=== PATIENT | female | born 1980 | race Caucasian/White ===

== ENCOUNTER 2018-03-11 10:15 | Emergency (ER) | payer OTHER ==
[~2018-03-11] VITALS: Ht 160 cm; Wt 77.1 kg
[2018-03-11 10:31] VITALS: BP 114/58
[2018-03-11] MEDS ORDERED: BENZ100C PO (10:56)
--- NOTE | 2018-03-11 10:56 | PHYS DOC ---
Past Medical History Past Medical History: No Pertinent History Past Surgical History: , Tubal ligation Alcohol Use: Occasionally Drug Use: None Adult General Chief Complaint Chief Complaint: COUGH HPI HPI Patient is a 38 year old female who presents to the emergency room with complaints of chest congestion, headache, hot and cold chills, fatigue, and dry cough since yesterday. Patient denies any fever, nausea, vomiting, diarrhea, or abdominal pain. In addition she reports a runny nose, left ear pain, sore throat , and frequent throat clearing. She states that at times she has felt short of breath and has been wheezing. She denies any medical history, states that she smokes less than half a pack a day. Patient denies any vision changes, photosensitivity, dizziness, or sinus pressure. She describes her headache as pounding pressure at the base of her skull. Review of Systems Review of Systems Constitutional: Denies fever Eyes: Denies change in visual acuity, redness, or eye pain [] HENT: reports runny nose, L ear pain, nasal congestion, and sore throat [] Respiratory: reports dry cough with shortness of breath [] Cardiovascular: No additional information not addressed in HPI [] GI: Denies abdominal pain, nausea, vomiting, or diarrhea [] Integument: Denies rash or skin lesions [] Neurologic: Denies focal weakness or sensory changes, reports headache All other systems were reviewed and found to be within normal limits, except as documented in this note. Allergies Allergies Allergies Coded Allergies Type Severity Reaction Last Updated Verified Penicillins Allergy Unknown 12/29/14 Yes Physical Exam Physical Exam Constitutional: Well developed, well nourished, no acute distress, non-toxic appearance. [] HENT: Normocephalic, atraumatic, bilateral external ears normal, oropharynx moist, postnasal drainage present, no oral exudates, nose normal. [] Eyes: PERRLA, conjunctiva normal, no discharge. [] Neck: Normal range of motion, no tenderness, supple, no stridor. [] Cardiovascular:Heart rate regular rhythm, no murmur [] Lungs & Thorax: Bilateral breath sounds clear to auscultation [] Skin: Warm, dry, no erythema, no rash. [] Extremities: No cyanosis, no clubbing, ROM intact, no edema. [] Neurologic: Alert and oriented X 3, normal motor function, normal sensory function, no focal deficits noted. [] Psychologic: Affect normal, judgement normal, mood normal. [] Current Patient Data Vital Signs Vital Signs Date Time Temp Pulse Resp B/P (MAP) Pulse Ox O2 Delivery O2 Flow Rate FiO2 03/11/18 10:31 98.0 88 20 114/58 (76) 97 Room Air 98.0 EKG EKG [] Radiology/Procedures Radiology/Procedures [] Course & Med Decision Making Course & Med Decision Making Pertinent Labs and Imaging studies reviewed. (See chart for details) Upper respiratory infection, treated as such. Tessalon Haroldo prescribed. Patient encouraged to use her Flonase nasal spray 2 sprays each nare once a day. Patient verbalized an understanding of home care, medications, follow-up, and return to ED instructions and was in agreement with the plan of care. [] Dragon Disclaimer Dragon Disclaimer This electronic medical record was generated, in whole or in part, using a voice recognition dictation system. Departure Departure Impression: Primary Impression: Upper respiratory infection with cough and congestion Disposition: 01 HOME, SELF-CARE Condition: STABLE Referrals: NO PCP (PCP) Patient Instructions: Upper Respiratory Infection, Adult, [id number] Additional Instructions: Fill prescription(s) and use as directed. OTC Flonase 2 sprays each nare daily. Cool mist humidifier in room at bedtime. Tylenol or ibuprofen prn pain/fever. Increase clear fluids. Avoid triggers such as smoke, fragrance, dust, and pollen. Follow-up with your primary care doctor in 1-2 days, return to the ER if your symptoms worsen. Scripts Benzonatate (TESSALON PERLE) 100 Mg Capsule 1 CAP PO TID, #21 CAP Prov: SERGIO BOWENS RUG MEASURER 03/11/18 SERGIO BOWENS RUG MEASURER Mar 11, 2018 10:56
== END 2018-03-11 11:04 | disposition home or self-care (01) ==
LOC: ER 10:15
DX: J06.9 Acute upper respiratory infection, unspecified (principal); R53.83 Other fatigue; Z98.890 Other specified postprocedural states; Z98.51 Tubal ligation status; Z88.0 Allergy status to penicillin
CPT/HCPCS: 99283

== ENCOUNTER 2018-11-08 13:52 | Emergency (ER) | payer OTHER ==
[~2018-11-08] VITALS: Ht 160 cm; Wt 77.1 kg
[~2018-11-08 13:52] MED LIST: BENZ100C PO
[2018-11-08 13:57] VITALS: BP 115/66
--- NOTE | 2018-11-08 14:30 | PHYS DOC ---
Past Medical History Past Medical History: No Pertinent History Past Surgical History: Other Additional Past Surgical Histo: L KNEE Smoking: Less than 1pk/day Additional Information: smoker Alcohol Use: None Drug Use: None Adult General Chief Complaint Chief Complaint: LOWER EXT PAIN HPI HPI Patient is a 38 year old female who presents with medial left calf tenderness and redness and swelling to the lateral side of her ankle. Patient was initially seen at [facility] [place] in the urgent care. Was sent over to ER for evaluation of DVT. Hurt her ankle last Saturday and over the last few days has noticed increased swelling and pain in the left lower extremity. Has not tried treatment at home. Rates her pain 9/10 and character of throbbing, tingling, and stabbing. Review of Systems Review of Systems Constitutional: Denies fever or chills [] Eyes: Denies change in visual acuity, redness, or eye pain [] HENT: Denies nasal congestion or sore throat [] Respiratory: Denies cough or shortness of breath [] Cardiovascular: No additional information not addressed in HPI [] GI: Denies abdominal pain, nausea, vomiting, bloody stools or diarrhea [] : Denies dysuria or hematuria [] Musculoskeletal: Denies back pain but report L ankle and LLE swelling and pain. Integument: Denies rash or skin lesions [] Neurologic: Denies headache, focal weakness or sensory changes [] Endocrine: Denies polyuria or polydipsia [] Complete systems were reviewed and found to be within normal limits, except as documented in this note. Current Medications Current Medications Current Medications Medications (Trade) Dose Ordered Sig/Mariela Start Time Stop Time Status Last Admin Dose Admin Acetaminophen/ Hydrocodone Bitart (Lortab 5/325) 1 tab 1X ONCE 11/08/18 14:45 11/08/18 14:46 DC 11/08/18 14:34 1 TAB Allergies Allergies Allergies Coded Allergies Type Severity Reaction Last Updated Verified Penicillins Allergy Unknown 12/29/14 Yes Physical Exam Physical Exam Constitutional: Well developed, well nourished, no acute distress, non-toxic appearance. [] HENT: Normocephalic, atraumatic, bilateral external ears normal, oropharynx moist, no oral exudates, nose normal. [] Eyes: PERRLA, EOMI, conjunctiva normal, no discharge. [] Neck: Normal range of motion, no tenderness, supple, no stridor. [] Cardiovascular:Heart rate regular rhythm, no murmur [] Lungs & Thorax: Bilateral breath sounds clear to auscultation [] Abdomen: Soft, no tenderness, no masses, no pulsatile masses. [] Skin: Warm, dry, no erythema, no rash. [] Extremities: Tenderness, edema and bruising to the LLE, no cyanosis, no clubbing, ROM intact. Neurologic: Alert and oriented X 3, normal motor function, normal sensory function although has had some burning and tingling in the LLE, no focal deficits noted. [] Psychologic: Affect normal, judgement normal, mood normal. [] Current Patient Data Vital Signs Vital Signs Date Time Temp Pulse Resp B/P (MAP) Pulse Ox O2 Delivery O2 Flow Rate FiO2 11/08/18 14:34 16 11/08/18 13:57 97.4 115/66 (82) Room Air 97.4 EKG EKG [] Radiology/Procedures Radiology/Procedures []PATIENT: WILLIE JOAQUIN NACCOUNT: [id number]#: [id number] : 1980 LOCATION: ER AGE: 38 SEX: F EXAM STATUS: REG ER ORD. PHYSICIAN: DIVINE GONZALES APRN REASON: L calf pain; ella's sign PROCEDURE: VENOUS LOWER EXTREMITY LEFT Left lower extremity venous duplex Doppler ultrasound HISTORY: Left calf pain, positive Homans sign. TECHNIQUE: Grayscale and duplex Doppler sonography were utilized. FINDINGS: No DVT evident with compressibility, patent color Doppler blood flow and augmentation of blood flow of the left common femoral vein, profunda femoral vein, superficial femoral vein and popliteal vein. There is patent color Doppler blood flow the posterior tibial and peroneal veins documented without gross evidence of a calf DVT. There is no thrombosis of the lesser saphenous vein with patent color Doppler blood flow and compressibility documented. IMPRESSION: Negative left leg for DVT. Electronically signed by: Hiram Harry MD (11/08/2018 3:41 PM) [facility] [place] Course & Med Decision Making Course & Med Decision Making Pertinent Labs and Imaging studies reviewed. (See chart for details) Will get ultrasound and then touch base with [facility]. Will also give pain medication. Patient is agreeable. Imaging is negative. Talked to her BIOCHEMISTRY TECHNICIAN Maria Luz Castellanos to see if she requests additional workup and she states that she can follow up with her at [facility]. Zac Disclaimer Zac Disclaimer This electronic medical record was generated, in whole or in part, using a voice recognition dictation system. Departure Departure Impression: Primary Impression: Lower extremity edema Disposition: HOME, SELF-CARE Condition: STABLE Referrals: NO PCP (PCP) Additional Instructions: Follow up with [facility]. Return to ER as needed. DIVINE GONZALES APRN November 08, 2018 14:30
[2018-11-08] MEDS ORDERED: HYDROcodone/APAP 5/325MG 1 TAB TABLET PO ONE (14:45)
--- NOTE | 2018-11-08 15:44 | RAD ---
Left lower extremity venous duplex Doppler ultrasound HISTORY: Left calf pain, positive Homans sign. TECHNIQUE: Grayscale and duplex Doppler sonography were utilized. FINDINGS: No DVT evident with compressibility, patent color Doppler blood flow and augmentation of blood flow of the left common femoral vein, profunda femoral vein, superficial femoral vein and popliteal vein. There is patent color Doppler blood flow the posterior tibial and peroneal veins documented without gross evidence of a calf DVT. There is no thrombosis of the lesser saphenous vein with patent color Doppler blood flow and compressibility documented. IMPRESSION: Negative left leg for DVT. Electronically signed by: Hiram Harry MD (11/08/2018 3:41 PM) [facility]
== END 2018-11-08 16:07 | disposition home or self-care (01) ==
LOC: ER 13:52
DX: S80.12XA Contusion of left lower leg, initial encounter (principal); R60.0 Localized edema; F17.200 Nicotine dependence, unspecified, uncomplicated; Z98.890 Other specified postprocedural states; Z88.0 Allergy status to penicillin; X58.XXXA Exposure to other specified factors, initial encounter; Y93.89 Activity, other specified; Y92.89 Other specified places as the place of occurrence of the external cause; Y99.8 Other external cause status
CPT/HCPCS: 93971; 99284-25